=== PATIENT | female | born 1970 | race Asian ===

== ENCOUNTER 2021-08-07 09:34 | Outpatient (CLI) | payer OTHER ==
--- NOTE | 2021-08-08 12:01 | Ultrasound Report ---
LIMITED ULTRASOUND OF RIGHT BREAST: 08/07/2021 CLINICAL: Patient returns today to evaluate a focal asymmetry in the right breast. Comparison is made to exams dated: 08/07/2021 mammogram, 01/17/2020 mammogram, 09/07/2013 ultrasound, 09/07/2013 mammogram, 09/08/2012 ultrasound, and 09/08/2012 mammogram - [facility]. Color flow ultrasound of the right breast 7-8 o'clock region was performed. Patel scale images of the real-time examination were reviewed. There is a 1.2 cm x 0.5 cm x 1.2 cm oval cyst in the right breast at 7 o'clock posterior depth 6 cm f rom the nipple. This oval cyst is anechoic with a well-defined boundary and posterior acoustic enhan cement. This correlates with mammography findings. Color flow imaging demonstrates that there is no vascularity present. IMPRESSION: BENIGN There is no sonographic evidence of malignancy. The 1.2 cm x 0.5 cm x 1.2 cm oval simple cyst in the right breast is benign. A 1 year screening mammogram is recommended. Findings and recommendations were conveyed to the patient during today's evaluation. This exam was interpreted at Station ID: [id number]. Electronically Signed By: Beni Jarrett M.D. aty/:08/07/2021 11:35:07 Ultrasound BI-RADS: 2 Benign BI-RADS CATEGORY: (2) - 2 RECOMMENDATION: (ANNUAL) - Recommend routine annual screening mammography. [id number] 1 year screening LATERALITY: (B)
--- NOTE | 2021-08-08 12:01 | Mammography Report ---
BILATERAL DIGITAL DIAGNOSTIC MAMMOGRAM 3D/2D: 08/07/2021 CLINICAL: Patient returns today to evaluate a focal asymmetry in the right breast. Comparison is made to exams dated: 01/17/2020 mammogram, 09/07/2013 ultrasound, 09/07/2013 mammogram, 09/08/2012 ultrasound, 09/08/2012 mammogram, and 02/04/2012 ultrasound - [facility] . The tissue of both breasts is heterogeneously dense. This may lower the sensitivity of mammography . There is a 1.2 cm oval equal density mass in the right breast at 7 o'clock posterior depth. This is seen in additional views. This is not significantly changed. No other significant masses, calcifications, or other findings are seen in either breast. IMPRESSION: INCOMPLETE: NEEDS ADDITIONAL IMAGING EVALUATION The 1.2 cm oval equal density mass in the right breast is indeterminate. An ultrasound is recommended for further evaluation and is scheduled to immediately follow this examination. This exam was interpreted at Station ID: [id number]. NOTE: For mammograms, a report in lay terms will be sent to the patient. Approximately 15% of breast malignancies will not be visualized mammographically. In the management of a palpable breast mass, a negative mammogram must not discourage biopsy of a clinically suspicious lesion. Electronically Signed By: Beni Jarrett M.D. aty/:08/07/2021 11:18:53 ACR BI-RADS Category 0: Incomplete 3340F PARENCHYMAL PATTERN: (D) - The breast(s) demonstrate(s) heterogeneously dense fibroglandular devi flores. BI-RADS CATEGORY: (0) - 0 Ultrasound [id number] Immediate follow-up LATERALITY: (R)
== END 2021-08-07 09:35 | disposition home or self-care (01) ==
LOC: DI 09:34
PROVIDERS: ATTEND Family Medicine
DX: N60.01 Solitary cyst of right breast (principal)